=== PATIENT | male | born 1980 | race Caucasian/White ===

== ENCOUNTER 2022-12-21 15:08 | Emergency (ER) | payer SELFPAY ==
[~2022-12-21 15:08] MED LIST: Iopamidol 370 76% 100 ML VIAL ONE
[2022-12-21 16:49] LABS: #Basophils 0.1 thou/uL (0.0-0.2); #Eosinphils 0.2 thou/uL (0.0-0.7); #Lymphocytes 1.3 thou/uL (1.20-3.40); #Monocytes 0.4 thou/uL (0.11-0.59); #Neutrophils 4.2 thou/uL (1.40-6.50); %Basophils 1.7 % (0.0-1.0); %Lymphocytes 20.8 % (21.0-51.0); %Monocytes 6.5 % (0.0-10.0); %Neutrophils 68.1 % (42.0-75.0); Hematocrit 48.9 % (42.0-52.0); Hemoglobin 15.7 g/dL (14.0-18.0); Mean Corpuscular HGB CONC 32.1 g/dL (32.0-36.0); Mean Corpuscular Hemoglobin 30.1 pg (27.0-31.0); Mean Corpuscular Volume 93.6 fl (78.0-98.0); Mean Platelet Volume 9.3 fL (7.4-10.4); Platelet Count 135 10x3/uL (130-400); RBC Distribution Width 13.8 % (11.5-14.5); Red Blood Cell (RBC) Count 5.22 mill/uL (4.70-6.10); White Blood Cell (WBC) Count 6.2 10x3/uL (4.8-10.8)
[2022-12-21 16:51] LABS: INR-International Normal Ratio 0.8; Prothrombin Time 11.7 sec (12.0-14.7)
[2022-12-21 16:52] LABS: PTT 22.1 sec (22.9-36.1)
[2022-12-21 16:58] LABS: Anion Gap 20 mmol/L (10-20); BUN (Urea Nitrogen) 6 mg/dL (8.9-20.6); Calc. Creatinine Clearance 0 mL/min (70-130); Carbon Dioxide 21 mmol/L (22-29); Chloride 107 mmol/L (98-107); Potassium 3.9 mmol/L (3.5-5.1); Sodium 144 mmol/L (136-145)
[2022-12-21 16:59] LABS: ALT (SGPT) 78 U/L (8-55); AST (SGOT) 92 U/L (5-34); Albumin 4.3 g/dL (3.5-5.0); Alkaline Phosphatase 83 U/L (40-110); Bilirubin, Total 1.4 mg/dL (0.2-1.2); Calcium 8.8 mg/dL (7.8-10.44); Estimated GFR 113; Glucose 99 mg/dL (70-105); Protein, Total 7.3 g/dL (6.0-8.3)
[2022-12-21] MEDS ORDERED: Lorazepam 1 MG TAB ONE (17:12)
== END 2022-12-21 19:20 | disposition home or self-care (01) ==
LOC: MADERS 15:08
DX: F41.1 Generalized anxiety disorder (principal)
CPT/HCPCS: 36415; 71275; 80053; 85025; 85610; 85730; Q9967